=== PATIENT | female | born 1955 | race African-American/Black ===

== ENCOUNTER 2021-12-05 15:45 | Emergency (ER) | payer MEDICARE, BC ==
--- NOTE | 2021-12-05 16:15 | NUR ---
Dr Egan at the bedside for MSE.
[2021-12-05] MEDS ORDERED: ONDANSETRON 4 MG/2 ML VIAL IV ONE (16:30)
[2021-12-05] MEDS ORDERED: IV NORMAL SALINE 1000 ML BAG IV ONE ×2 (16:30→17:15)
[2021-12-05 16:36] LABS: HEMATOCRIT 39.1 % (31.2-41.9); MEAN CORPUSCULAR HEMOGLOBIN 27.5 uug (24.7-32.8); MEAN CORPUSCULAR VOLUME 83.7 fL (75.5-95.3); PLATELET COUNT (AUTO) 153 K/uL (179-408)
[2021-12-05] MEDS ORDERED: ONDANSETRON 4 MG/2 ML VIAL ONE (16:45)
[2021-12-05 16:46] LABS: CARBON DIOXIDE 26 mmol/L (21-32); CHLORIDE 107 mmol/L (98-107); CREATININE 1.5 mg/dL (0.6-1.3); GLUCOSE 90 mg/dL (74-106); POTASSIUM 3.8 mmol/L (3.5-5.1); UREA NITROGEN, BLOOD 25 mg/dL (7-18)
[2021-12-05 16:55] LABS: ALANINE AMINOTRANSFERASE 14 U/L (14-59); ALKALINE PHOSPHATASE 74 U/L (50-136); ASPARTATE AMINOTRANSFERASE 8 U/L (15-37); BILIRUBIN,DIRECT 0.1 mg/dL (0.0-0.2); BILIRUBIN,TOTAL 0.4 mg/dL (0.2-1.0); TOTAL PROTEIN, SERUM 7.3 g/dL (6.4-8.2)
--- NOTE | 2021-12-05 18:01 | NUR ---
PT walked to bathroom w/ steady gait, denies dizziness and lightheadedness.
--- NOTE | 2021-12-05 18:15 | NUR ---
Pt resting in bed, states feeling better.
--- NOTE | 2021-12-05 20:08 | NUR ---
Patient discharged to home in stable condition. Written and verbal after care instructions given. Patient verbalizes understanding of instructions. Stressed follow up or return to ER for worsening s/s. pt ambulated with steady gait. denies pain. no SOB. no chest pain. AOx4
[2021-12-05 20:09] VITALS: BP 120/68
== END 2021-12-05 20:10 | disposition home or self-care (01) ==
LOC: ER 15:49
DX: R55 Syncope and collapse (principal); E86.0 Dehydration; I10 Essential (primary) hypertension
CPT/HCPCS: 36415; 80048; 80076; 84484; 85025; 93005; 96360; 96361; 99284; J2405; J7040 ×2; A4663